=== PATIENT | male | born 1970 | race Caucasian/White ===

== ENCOUNTER 2020-09-05 15:51 | Inpatient (IN) | payer MEDICARE, MEDICAID, SELFPAY ==
[2020-09-05] VITALS (10 sets, daily range): BP systolic 106–135; BP diastolic 68–89; PULSE 99–120; RESP 16–25; TEMP 36.8–37.6; O2SAT 94–100; BMI 28.5
--- NOTE | 2020-09-05 16:09 | ED_ITS ---
Documented by User: QUINN Lunsford 09/07/20 18:10 HPI - Abdominal Pain General: Chief Complaint: Abdominal Pain Stated Complaint: ABDOMINAL PAIN Time Seen by Provider: 09/05/20 15:53 Source: patient Mode of arrival: EMS Limitations: no limitations History of Present Illness: HPI narrative: Patient is a nice 50-year-old male who presents to ED today with a complaint of right-sided abdominal pain that began noticing yesterday. He states since onset pain has progressively worsened. He is not having any nausea, vomiting, diarrhea, constipation. He admittedly has not ate or drank much since the pain started. He does not complain of urinary symptoms. Patient has not been running fevers. He has no previous abdominal surgeries. He does not complain of back pain or flank pain. MD elicited complaint: abdominal pain Pertinent past history: none Onset (ago): day(s) (yesterday) Pain Consistency: constant Severity: moderate Quality: sharp Radiation: none Migration to: no migration Exacerbating factors: nothing Relieving factors: nothing Associated Symptoms: Reports no associated symptoms; Denies change in stool character, chills, diarrhea, dysuria, fever(s), nausea and vomiting Review of Systems Const: Denies: fever(s) or chills Card: Denies: chest pain Resp: Denies: dyspnea GI: Reports: abdominal pain; Denies: nausea, vomiting, diarrhea or change in stool character : Denies: flank pain, difficulty urinating, dysuria, urinary frequency, u rinary urgency or urinary hesitancy Musc: Denies: neck pain, back pain, extremity pain, extremity swelling, joint pain or joint swelling Skin/Breast: Denies: rash Neuro: Denies: headache(s), numbness in extremities, weakness in extremities or sensory changes [facility] ED PFSH: Medical History (Updated 09/22/20 @ 00:27 by Alex Saravia MD, [facility] Cholelithiasis Chronic back pain Hypertension Surgical History (Updated 09/06/20 @ 08:04 by Stuart Cortés MD) Previous back surgery Lumbar laminectomy x 1 Umbilical hernia Repaired at the time of appendectomy Social History (Updated 09/05/20 @ 17:50 by Stuart Cortés MD) Smoking and tobacco status: current every day smoker cigarettes Packs smoked per day: 1 Years cigarettes smoked: 35 Alcohol intake: current Alcohol type: beer Alcohol use comment: Occasionally Physical Exam Const: COMMON NORMALS: no acute distress, average body habitus, patient oriented x3, no limitations, healthy appearing, alert and well nourished GENERAL APPEARANCE: cooperative ORIENTATION/CONSCIOUSNESS: Yes awake, Yes oriented to person, Yes oriented to place and Yes oriented to time Resp: COMMON NORMALS: normal respiratory effort and clear to auscultation bilaterally AUSCULTATION: clear to auscultation bilaterally Cardio: COMMON NORMALS: regular rate and regular rhythm RATE: regular rate RHYTHM: regular rhythm GI: COMMON NORMALS: Normal to inspection, nondistended, normoactive bowel sounds present, Soft to palpation, No hepatosplenomegaly present and no masses PALPATION: Yes Soft to palpation, Yes Tenderness to palpation present (GI) Details: RLQ and Yes No hepatosplenomegaly present : COMMON NORMALS: Yes no CVA tenderness BLADDER/KIDNEY EXAM: Yes no CVA tenderness Back/Pelvis: COMMON NORMALS: no CVA tenderness Extremity: COMMON NORMALS: normal to inspection GENERAL: Yes normal exam except as noted Neuro: COMMON NORMALS: patient oriented x3 SENSORIUM/ORIENTATION: Yes alert, Yes oriented to person, Yes oriented to place and Yes oriented to time Skin: COMMON NORMALS: no rashes or lesions noted GENERAL SKIN EXAM: no rashes or lesions noted Course Consultations: Consultation #1: Dr. Cortés-he will come evaluate patient in ED and likely take to OR Vital Signs: Vital signs: Vital Signs Temperature 97.5 F L 09/08/20 07:37 Pulse Rate 87 09/08/20 11:03 Respiratory Rate 18 09/08/20 07:54 Blood Pressure 106/66 09/08/20 07:37 Pulse Oximetry 95 09/08/20 07:54 MDM - Abdominal Pain MDM Narrative: Medical decision making narrative: Patient here with acute appendicitis. Possible perforation. He has been NPO since around noon. He was started on IV abx. I have consulted with the surgeon who is on his way to evaluate patient and likely take to OR. Dr. Saravia aware of patient as my shift is ending. Lab Data: Labs: Lab Results 09/05/20 09/05/20 09/05/20 Range/Units 16:00 16:00 17:00 WBC 19.6 H (4.0-10.0) 10^3/ uL RBC 5.35 H (4.1-5.3) 10^6/u L Hgb 16.2 (11.7-16.6) g/dL Hct 47.8 (42.0-52.0) % MCV 89.3 (80-94) fL MCH 30.3 (28.0-34.0) pg MCHC 33.9 (30.0-36.0) g/dL RDW 12.7 (12.1-15.1) % Plt Count 297 (130-400) 10^3/c mm MPV 11.1 H (7.4-10.4) fL Neut % (Auto) 91.4 % Lymph % (Auto) 2.9 % [place] % (Auto) 4.9 % Eos % (Auto) 0.1 % Baso % (Auto) 0.2 % Neut # (Auto) 17.88 H (1.8-7.7) 10^3/u L Lymph # (Auto) 0.6 L (0.8-4.8) 10^3/u L [place] # (Auto) 1.0 H (0.2-0.9) 10^3/u L Eos # (Auto) 0.0 (0.0-0.8) 10^3/u L Baso # (Auto) 0.0 (0.0-0.1) 10^3/u L Nucleated RBC % (a uto) 0 % Nucleated RBCs # 0.0 /100WBC Sodium 133 L (136-145) mmol/L Potassium 4.1 (3.5-5.1) mmol/L Chloride 96 L (98-107) mmol/L Carbon Dioxide 27 (22-29) mmol/L Anion Gap 14.1 (5-19) BUN 15 (6-20) mg/dL Creatinine 0.9 (0.7-1.2) mg/dL GFR Calculation 89.3 L (90-130) mL/min Glucose 134 H (65-115) mg/dL Calculated Osmolal ity 279 L (285-295) mOsm/k g Lactic Acid 1.7 (0.5-2.2) mmol/L Calcium 9.3 (8.5-10.5) mg/dL Total Bilirubin 0.7 (0.15-1.2) mg/dL AST 11 (0-40) U/L ALT 11 (0-41) U/L Alkaline Phosphata se 82 (40-130) IU/L Total Protein 7.2 (6.6-8.7) g/dL Albumin 4.4 (3.5-5.2) g/dL Globulin 2.8 (1.3-4.6) g/dL Lipase 15 (13-60) U/L Urine Color (Yellow) Urine Appearance (CLEAR) Urine pH (5-7) Ur Specific Gravit y (1.005-1.030) Urine Protein (Negative) Urine Glucose (UA) (Normal) Urine Ketones (Negative) Urine Blood (Negative) Urine Nitrate (Negative) Urine Bilirubin (Negative) Urine Urobilinogen (Negative) mg/dL Ur Leukocyte Noelle ase (Negative) 09/05/20 09/06/20 09/06/20 Range/Units 17:00 05:42 05:42 WBC 21.7 H (4.0-10.0) 10^3/ uL RBC 4.61 (4.1-5.3) 10^6/u L Hgb 13.9 (11.7-16.6) g/dL Hct 41.5 L (42.0-52.0) % MCV 90.0 (80-94) fL MCH 30.2 (28.0-34.0) pg MCHC 33.5 (30.0-36.0) g/dL RDW 12.7 (12.1-15.1) % Plt Count 247 (130-400) 10^3/c mm MPV 11.2 H (7.4-10.4) fL Neut % (Auto) 90.6 % Lymph % (Auto) 4.2 % [place] % (Auto) 4.3 % Eos % (Auto) 0.0 % Baso % (Auto) 0.1 % Neut # (Auto) 19.64 H (1.8-7.7) 10^3/u L Lymph # (Auto) 0.9 (0.8-4.8) 10^3/u L [place] # (Auto) 0.9 (0.2-0.9) 10^3/u L Eos # (Auto) 0.0 (0.0-0.8) 10^3/u L Baso # (Auto) 0.0 (0.0-0.1) 10^3/u L Nucleated RBC % (a uto) 0 % Nucleated RBCs # 0.0 /100WBC Sodium 138 (136-145) mmol/L Potassium 3.9 (3.5-5.1) mmol/L Chloride 104 (98-107) mmol/L Carbon Dioxide 24 (22-29) mmol/L Anion Gap 13.9 (5-19) BUN 11 (6-20) mg/dL Creatinine 1.0 (0.7-1.2) mg/dL GFR Calculation 79.1 L (90-130) mL/min Glucose 139 H (65-115) mg/dL Calculated Osmolal ity 288 (285-295) mOsm/k g Lactic Acid (0.5-2.2) mmol/L Calcium 8.4 L (8.5-10.5) mg/dL Total Bilirubin (0.15-1.2) mg/dL AST (0-40) U/L ALT (0-41) U/L Alkaline Phosphata se (40-130) IU/L Total Protein (6.6-8.7) g/dL Albumin (3.5-5.2) g/dL Globulin (1.3-4.6) g/dL Lipase (13-60) U/L Urine Color Dark yellow (Yellow) Urine Appearance Clear (CLEAR) Urine pH 5 (5-7) Ur Specific Gravit y 1.010 (1.005-1.030) Urine Protein Neg (Negative) Urine Glucose (UA) Norm (Normal) Urine Ketones Negative (Negative) Urine Blood Neg (Negative) Urine Nitrate Negative (Negative) Urine Bilirubin 1+ H (Negative) Urine Urobilinogen 1 H (Negative) mg/dL Ur Leukocyte Noelle ase Negative (Negative) Imaging Data ^: CT Abd/Pel: Radiologist's impression: [address] [place] [address] CT Scan Report Signed with Addenda Patient: Chucky Winslow Unit #: [id number] : 1970 Age/Sex: 50 / M ADM Date: 09/05/20 Loc: ER Room/Bed: Attending Dr: Ordering Provider/Ordering MD: Stacey Nix Date of Service: 09/05/20 Procedure(s): CT abdomen pelvis w con* [id number] Accession Number(s): [id number] Report Number: [id number]/CT abdomen pelvis w con* [id number] Addendum: THIS REPORT CONTAINS FINDINGS THAT MAY BE CRITICAL TO PATIENT CARE. The findings were verbally communicated via telephone conference with Stacey Nix at 5:10 PM [employer]IDGE CONSTRUCTION INSPECTOR on 09/05/2020. The findings were acknowledged and understood. Radiation Dose CTDIVOL = (mGy): DLP = 1912.81 (mGy-cm) Addendum Dictated By: Marshall Milan Addendum Signed By: Marshall Milan Signed Date/Time: 09/05/20 171 2 Addendum Cosigned By: PROCEDURE INFORMATION: Exam: CT Abdomen And Pelvis With Contrast Exam date and time: 09/05/2020 4:33 PM Age: 50 years old Clinical indication: Abdominal pain; Additional info: R sided abdominal pain TECHNIQUE: Imaging protocol: Computed tomography of the abdomen and pelvis with contrast. Radiation optimization: All CT scans at this facility use at least one of these dose optimization techniques: automated exposure control; mA and/or kV adjustment per patient size (includes targeted exams where dose is matched to clinical indication); or iterative reconstruction. Contrast material: OMNI 300; Contrast volume: 95 ml; Contrast route: INTRAVENOUS (IV); COMPARISON: No relevant prior studies available. RADIATION DOSE METRICS: Total DLP (mGy-cm): 1912.81 FINDINGS: Liver: There is no focal abnormality within the liver. Gallbladder and bile ducts: Multiple calcified gallstones are present. Pancreas: The pancreas is normal. Spleen: The spleen is normal. Adrenal glands: The adrenal glands are normal. Kidneys and ureters: The kidneys are normal. There is no evidence of hydronephrosis. There is no evidence of renal or ureteral calcifications. Stomach and bowel: There is some mildly dilated fluid-filled loops of small bowel suggesting reactive ileus. Appendix: Appendix is thickened and distended to 11 mm with enhancing wall with inflammation in the adjacent fat. These findings are worrisome for acute appendicitis. Intraperitoneal space: There is a small amount of fluid in the right lower quadrant and right pericolic gutter. There is a single bubble of gas in the anterior aspect of this fluid which raises concern for the possibility of appendiceal perforation. There may be additional bubble of extraluminal gas adjacent to the base of the appendix. Vasculature: The aorta demonstrates mild atherosclerotic calcification. There is no evidence of an abdominal aortic aneurysm. Lymph nodes: Unremarkable. No enlarged lymph nodes. Urinary bladder: There is thickening of the wall of the urinary bladder. Please correlate for signs of symptoms of urinary tract infection. Reproductive: The prostate gland demonstrates nonspecific parenchymal calcifications. Bones/joints: The lumbar spine demonstrates mild degenerative changes at multiple levels. Soft tissues: Unremarkable. CT/CT abdomen pelvis w con* [id number] IMPRESSION: 1. Acute appendicitis. 2. Appendiceal perforation is suspected. 3. Cholelithiasis 4. Thickening of the urinary bladder wall. Please correlate for any signs of urinary tract infection. 5. Mild ileus. Radiation Dose CTDIVOL = (mGy): DLP = 1912.81 (mGy-cm) Dictated By: Marshall Milan Signed By: Marshall Milan Signed Date/Time: 09/05/20 171 DD/ 07 Discharge Plan Discharge Patient Disposition: Admitted As Inpatient Admit Provider: Stuart Cortés Clinical Impression: Acute appendicitis Condition: Stable Discharge Diet: Advance as tolerated Discharge Activity: Limit activity as instructed Coding Level of Care Code ED Automotive Power Electronics Engineer for Chg Fwd Exam Detailed Documented by User: Alex Saravia MD, [facility] 09/22/20 00:27 HPI - Abdominal Pain General: Chief Complaint: Abdominal Pain Stated Complaint: ABDOMINAL PAIN Time Seen by Provider: 09/05/20 15:53 PFSH ED PFSH: Medical History (Updated 09/22/20 @ 00:27 by Alex Saravia MD, [facility] Cholelithiasis Chronic back pain Hypertension Surgical History (Updated 09/06/20 @ 08:04 by Stuart Cortés MD) Previous back surgery Lumbar laminectomy x 1 Umbilical hernia Repaired at the time of appendectomy Social History (Updated 09/05/20 @ 17:50 by Stuart Cortés MD) Smoking and tobacco status: current every day smoker cigarettes Packs smoked per day: 1 Years cigarettes smoked: 35 Alcohol intake: current Alcohol type: beer Alcohol use comment: Occasionally Course Vital Signs: Vital signs: Vital Signs Temperature 97.5 F L 09/08/20 07:37 Pulse Rate 87 09/08/20 11:03 Respiratory Rate 18 09/08/20 07:54 Blood Pressure 106/66 09/08/20 07:37 Pulse Oximetry 95 09/08/20 07:54 MDM - Abdominal Pain MDM Narrative: Medical decision making narrative: Kindly review the nurse practitioner's note for complete history and physical examination. I agree with her findings. Essentially this is a gentleman with acute appendicitis with likely perforation and will be taken emergently to the or for appendectomy. Lab Data: Labs: Lab Results 09/05/20 09/05/20 09/05/20 Range/Units 16:00 16:00 17:00 WBC 19.6 H (4.0-10.0) 10^3/ uL RBC 5.35 H (4.1-5.3) 10^6/u L Hgb 16.2 (11.7-16.6) g/dL Hct 47.8 (42.0-52.0) % MCV 89.3 (80-94) fL MCH 30.3 (28.0-34.0) pg MCHC 33.9 (30.0-36.0) g/dL RDW 12.7 (12.1-15.1) % Plt Count 297 (130-400) 10^3/c mm MPV 11.1 H (7.4-10.4) fL Neut % (Auto) 91.4 % Lymph % (Auto) 2.9 % [place] % (Auto) 4.9 % Eos % (Auto) 0.1 % Baso % (Auto) 0.2 % Neut # (Auto) 17.88 H (1.8-7.7) 10^3/u L Lymph # (Auto) 0.6 L (0.8-4.8) 10^3/u L [place] # (Auto) 1.0 H (0.2-0.9) 10^3/u L Eos # (Auto) 0.0 (0.0-0.8) 10^3/u L Baso # (Auto) 0.0 (0.0-0.1) 10^3/u L Nucleated RBC % (a uto) 0 % Nucleated RBCs # 0.0 /100WBC Sodium 133 L (136-145) mmol/L Potassium 4.1 (3.5-5.1) mmol/L Chloride 96 L (98-107) mmol/L Carbon Dioxide 27 (22-29) mmol/L Anion Gap 14.1 (5-19) BUN 15 (6-20) mg/dL Creatinine 0.9 (0.7-1.2) mg/dL GFR Calculation 89.3 L (90-130) mL/min Glucose 134 H (65-115) mg/dL Calculated Osmolal ity 279 L (285-295) mOsm/k g Lactic Acid 1.7 (0.5-2.2) mmol/L Calcium 9.3 (8.5-10.5) mg/dL Total Bilirubin 0.7 (0.15-1.2) mg/dL AST 11 (0-40) U/L ALT 11 (0-41) U/L Alkaline Phosphata se 82 (40-130) IU/L Total Protein 7.2 (6.6-8.7) g/dL Albumin 4.4 (3.5-5.2) g/dL Globulin 2.8 (1.3-4.6) g/dL Lipase 15 (13-60) U/L Urine Color (Yellow) Urine Appearance (CLEAR) Urine pH (5-7) Ur Specific Gravit y (1.005-1.030) Urine Protein (Negative) Urine Glucose (UA) (Normal) Urine Ketones (Negative) Urine Blood (Negative) Urine Nitrate (Negative) Urine Bilirubin (Negative) Urine Urobilinogen (Negative) mg/dL Ur Leukocyte Noelle ase (Negative) 09/05/20 09/06/20 09/06/20 Range/Units 17:00 05:42 05:42 WBC 21.7 H (4.0-10.0) 10^3/ uL RBC 4.61 (4.1-5.3) 10^6/u L Hgb 13.9 (11.7-16.6) g/dL Hct 41.5 L (42.0-52.0) % MCV 90.0 (80-94) fL MCH 30.2 (28.0-34.0) pg MCHC 33.5 (30.0-36.0) g/dL RDW 12.7 (12.1-15.1) % Plt Count 247 (130-400) 10^3/c mm MPV 11.2 H (7.4-10.4) fL Neut % (Auto) 90.6 % Lymph % (Auto) 4.2 % [place] % (Auto) 4.3 % Eos % (Auto) 0.0 % Baso % (Auto) 0.1 % Neut # (Auto) 19.64 H (1.8-7.7) 10^3/u L Lymph # (Auto) 0.9 (0.8-4.8) 10^3/u L [place] # (Auto) 0.9 (0.2-0.9) 10^3/u L Eos # (Auto) 0.0 (0.0-0.8) 10^3/u L Baso # (Auto) 0.0 (0.0-0.1) 10^3/u L Nucleated RBC % (a uto) 0 % Nucleated RBCs # 0.0 /100WBC Sodium 138 (136-145) mmol/L Potassium 3.9 (3.5-5.1) mmol/L Chloride 104 (98-107) mmol/L Carbon Dioxide 24 (22-29) mmol/L Anion Gap 13.9 (5-19) BUN 11 (6-20) mg/dL Creatinine 1.0 (0.7-1.2) mg/dL GFR Calculation 79.1 L (90-130) mL/min Glucose 139 H (65-115) mg/dL Calculated Osmolal ity 288 (285-295) mOsm/k g Lactic Acid (0.5-2.2) mmol/L Calcium 8.4 L (8.5-10.5) mg/dL Total Bilirubin (0.15-1.2) mg/dL AST (0-40) U/L ALT (0-41) U/L Alkaline Phosphata se (40-130) IU/L Total Protein (6.6-8.7) g/dL Albumin (3.5-5.2) g/dL Globulin (1.3-4.6) g/dL Lipase (13-60) U/L Urine Color Dark yellow (Yellow) Urine Appearance Clear (CLEAR) Urine pH 5 (5-7) Ur Specific Gravit y 1.010 (1.005-1.030) Urine Protein Neg (Negative) Urine Glucose (UA) Norm (Normal) Urine Ketones Negative (Negative) Urine Blood Neg (Negative) Urine Nitrate Negative (Negative) Urine Bilirubin 1+ H (Negative) Urine Urobilinogen 1 H (Negative) mg/dL Ur Leukocyte Noelle ase Negative (Negative) Discharge Plan Discharge Patient Disposition: Admitted As Inpatient Admit Provider: Stuart Cortés Clinical Impression: Acute appendicitis Condition: Stable Discharge Diet: Advance as tolerated Discharge Activity: Limit activity as instructed Coding Level of Care Code ED Automotive Power Electronics Engineer for Macy Fwd Exam Detailed
[2020-09-05 16:13] LABS: Basophils % 0.2 %; Eosinophils % 0.1 %; Hematocrit 47.8 % (42.0-52.0); Hemoglobin 16.2 g/dL (11.7-16.6); Lymphocytes # 0.6 10^3/uL (0.8-4.8); Lymphocytes % 2.9 %; Mean Corpuscular HGB Conc 33.9 g/dL (30.0-36.0); Mean Corpuscular Hemoglobin 30.3 pg (28.0-34.0); Mean Corpuscular Volume 89.3 fL (80-94); Mean Platelet Volume 11.1 fL (7.4-10.4); Monocytes % 4.9 %; Neutrophils # 17.88 10^3/uL (1.8-7.7); Neutrophils % 91.4 %; Nucleated Red Blood Cells % 0 %; Platelet Count 297 10^3/cmm (130-400); Red Blood Count 5.35 10^6/uL (4.1-5.3); Red Cell Distribution Width 12.7 % (12.1-15.1); White Blood Count 19.6 10^3/uL (4.0-10.0)
[2020-09-05 16:38] LABS: Alanine Aminotransferase 11 U/L (0-41); Albumin Level 4.4 g/dL (3.5-5.2); Alkaline Phosphatase 82 IU/L (40-130); Anion Gap 14.1 (5-19); Aspartate Amino Transferase 11 U/L (0-40); Blood Urea Nitrogen 15 mg/dL (6-20); Calcium 9.3 mg/dL (8.5-10.5); Carbon Dioxide 27 mmol/L (22-29); Chloride 96 mmol/L (98-107); Globulin 2.8 g/dL (1.3-4.6); Glomerular Filtration Rate 89.3 mL/min (90-130); Glucose 134 mg/dL (65-115); Lipase 15 U/L (13-60); Osmolality Calculated 279 mOsm/kg (285-295); Potassium 4.1 mmol/L (3.5-5.1); Sodium 133 mmol/L (136-145); Total Bilirubin 0.7 mg/dL (0.15-1.2); Total Protein 7.2 g/dL (6.6-8.7)
[2020-09-05] MEDS: iohexol 300 mg/mL 100 mL Btl IV (16:49)
[2020-09-05] MEDS: piperacillin-tazobactam 3.375 GM in sodium chloride 0.9% (plus) 50 ML IV (17:21)
[2020-09-05 17:39] LABS: Lactic Sepsis W/Reflex 1.7 mmol/L (0.5-2.2)
[2020-09-05] MEDS: morphine 4 mg/mL SDV 1 mL IVP (17:41)
[2020-09-05] MEDS: ondansetron 2 mg/ML SDV 2 mL 4 MG IVP (17:41)
--- NOTE | 2020-09-05 17:41 | ANES.PREANE2 ---
Pre-Anesthetic Assessment Pre-Anesthetic Assessment: Height/Weight: Height 1.83 m Weight 95.254 kg Temp Pulse Resp BP Pulse Ox 98.4 F 106 H 25 H 113/77 97 09/05/20 15:52 09/05/20 17:03 09/05/20 17:03 09/05/20 17:03 09/05/20 17:03 Preop Diagnosis: appendicitis Proposed Procedure: Laparascopic Appendectomy Familial anesthetic complications: NOne Was Beta Marlene taken within 24 hours: N/A Last intake: NPO > 8 hrs Social: Social History: Tobacco and No alcohol Exam: Pre-Anes Outpt Exam: alert, oriented x 3, clear to auscultation bilaterally and regular rate & rhythm Airway: Cervical ROM: WNL MP: 3 Dentition: Chipped CV/HEM: CV/HEM: HTN Musc/skel: Musc/skel: Lower Back Pain Anesthetic Plan: ASA status: 2E Anesthesia: General Risk of > 500 ml blood loss (7ml/kg in children): No Data Anesthesia CBC & Chem 7: 09/05/20 16:00 09/05/20 16:00 Other Labs: Laboratory Results - last 48 hr 09/05/20 09/05/20 09/05/20 16:00 16:00 17:00 WBC 19.6 H RBC 5.35 H Hgb 16.2 Hct 47.8 MCV 89.3 MCH 30.3 MCHC 33.9 RDW 12.7 Plt Count 297 MPV 11.1 H Neut % (Auto) 91.4 Lymph % (Auto) 2.9 [place] % (Auto) 4.9 Eos % (Auto) 0.1 Baso % (Auto) 0.2 Neut # (Auto) 17.88 H Lymph # (Auto) 0.6 L [place] # (Auto) 1.0 H Eos # (Auto) 0.0 Baso # (Auto) 0.0 Nucleated RBC % (auto) 0 Nucleated RBCs # 0.0 Sodium 133 L Potassium 4.1 Chloride 96 L Carbon Dioxide 27 Anion Gap 14.1 BUN 15 Creatinine 0.9 GFR Calculation 89.3 L Glucose 134 H Calculated Osmolality 279 L Lactic Acid 1.7 Calcium 9.3 Total Bilirubin 0.7 AST 11 ALT 11 Alkaline Phosphatase 82 Total Protein 7.2 Albumin 4.4 Globulin 2.8 Lipase 15 Cardiac Studies: No Data to Display
[2020-09-05 17:45] LABS: Add Urine Microscopic? NO
--- NOTE | 2020-09-05 17:45 | PM.HP ---
Providers/Chief Complaint Admitting Physician: General Surgery Stuart Cortés MD Primary Care Provider: Dr. Metzger Chief Complaint: ABDOMINAL PAIN History of Present Illness Chucky Winslow is a 50 year old male who developed abdominal pain late yesterday morning. This started in the right lower quadrant of his abdomen. Initially it was not that bad, but it worsened throughout the day. He lost his appetite. He thought maybe he was constipated even though he had a normal bowel movement earlier in the day. He took some milk of magnesia but it did not result in any further bowel movements. He denies fevers, chills, nausea and vomiting. The pain, however continued to intensify and he came to the emergency room today where a CAT scan showed changes consistent with acute appendicitis. The radiologist is concerned that there may already be an early perforation. Review of Systems General: Reports: 10 or more systems reviewed and unremarkable except in HPI and below Const: Reports: chills ( I felt a little cold after I got done with a CAT scan ); Denies: fever(s) Resp: Denies: dyspnea or productive cough GI: Reports: abdominal pain; Denies: nausea, vomiting or change in bowel habits Musc: Reports: back pain (Chronic) Medications/Allergies Home Medications Medication Instructions Recorded Confirmed Last Taken Type aspirin [Aspir-81] 81 mg PO DAILY@0800 09/05/20 09/05/20 09/04/20 History cyclobenzaprine 10 mg PO TID PRN 09/05/20 09/05/20 09/04/20 History lisinopril 20 mg PO DAILY@0800 09/05/20 09/05/20 09/04/20 History pregabalin 300 mg PO BID@08,199909/05/20 09/05/20 09/04/20 History saw palmetto 1 tab PO DAILY@0800 09/05/20 09/05/20 09/04/20 History Allergies Allergy/AdvReac Type Severity Reaction Status Date / Time codeine Allergy ADR-Nausea Verified 09/05/20 17:50 PFSH Acute PFSH: Medical History (Updated 09/05/20 @ 17:47 by Stuart Cortés MD) Cholelithiasis Chronic back pain Hypertension Surgical History (Updated 09/05/20 @ 17:46 by Stuart Cortés MD) Previous back surgery Lumbar laminectomy x 1 Social History (Updated 09/05/20 @ 17:50 by Stuart Cortés MD) Smoking and tobacco status: current every day smoker cigarettes Packs smoked per day: 1 Years cigarettes smoked: 35 Alcohol intake: current Alcohol type: beer Alcohol use comment: Occasionally Vitals/I&O/Wt Last Vital Signs Temp 98.4 F 09/05/20 15:52 Pulse 106 H 09/05/20 17:03 Resp 25 H 09/05/20 17:03 BP 113/77 09/05/20 17:03 Pulse Ox 97 09/05/20 17:03 Weight last 48 hrs Weight 210 lb Physical Exam Narrative: EXAM NARRATIVE: The patient was encountered in his room in the emergency department. He is laying on his right side. He does not appear to be in any acute distress but seems to be uncomfortable when he moves around. The pupils are equal. No carotid bruits are heard. The lungs are clear. The heart is regular. The abdomen reveals hypoactive bowel sounds and is mildly obese. There is a fat-containing umbilical hernia which is nontender. The patient's maximum point of tenderness is over McBurney's point in the right lower quadrant or perhaps slightly above that. Rovsing's sign is positive. No obvious masses are palpated Data : 09/05/20 16:00 09/05/20 16:00 CT Abd/Pel: Radiologist's impression: CT abdomen/pelvis 09/05/2020 IMPRESSION: 1. Acute appendicitis. 2. Appendiceal perforation is suspected. 3. Cholelithiasis 4. Thickening of the urinary bladder wall. Please correlate for any signs of urinary tract infection. 5. Mild ileus. A&P Assessment and plan (1) Acute appendicitis: CAT scan was reviewed. The patient's appendix does appear to be significantly inflamed and there appears to be a small amount of air probably outside of the appendiceal lumen laterally up against the abdominal wall. I discussed appendicitis and appendectomy's with the patient in some detail. Both laparoscopy and open techniques were discussed. Risks of surgery including bleeding, infection, internal organ injury, etc. were all gone over. I made him aware that if there is clinical evidence of obvious perforation, he may need to be in the hospital for a while for further treatment and he voiced understanding; otherwise, we may be able to discharge him as early as tomorrow morning. He seems to understand and would like to proceed with an appendectomy tonight. Status: Acute Qualifiers: Acute appendicitis type: with localized peritonitis Appendicitis abscess presence: without abscess Appendicitis gangrene presence: without gangrene Appendicitis perforation presence: with perforation Qualified Code(s): K35.32 - Acute appendicitis with perforation and localized peritonitis, without abscess (2) Umbilical hernia: I made the patient aware that this will be repaired incidentally at the time of surgery. Status: Acute Attestations Medical Necessity Statement*: Based on my medical assessment, presenting symptoms and consideration of the scope of surgical therapy, I expect this patient will require treatment in the hospital for a period of time spanning less than 2 midnights, and is therefore being placed in observation status for now. If the patient's appendix is found to be clinically ruptured, he may require a change to inpatient status for ongoing treatment. Coding Level of Care Code Acute Station Mechanic Helper for [facility] Fwd Diagnoses Acute appendicitis K35.32 Acute appendicitis type: with localized peritonitis Appendicitis abscess presence: without abscess Appendicitis gangrene presence: without gangrene Appendicitis perforation presence: with perforation Umbilical hernia K42.9
[2020-09-05] MEDS: lactated ringers 1,000 ML 150 ML IV (17:49)
[2020-09-05 18:02] LABS: Bilirubin Urine 1+ (Negative); Blood Urine Neg (Negative); Glucose Urine UA Norm (Normal); Ketones Urine Negative (Negative); Leukocyte Esterase Urine Negative (Negative); Nitrate Urine Negative (Negative); Protein Urine Neg (Negative); Urine Appearance Clear (CLEAR); Urine Color Dark Yellow (Yellow); Urobilinogen Urine 1 mg/dL (Negative); pH Urine 5 (5-7)
--- NOTE | 2020-09-05 19:15 | P.OP_ITS ---
Operative Report Date of procedure: September 05, 2020 Pre-op Diagnosis: Acute appendicitis with probable early rupture. Post-op Diagnosis: Perforated appendicitis. Procedure Done: Laparoscopic appendectomy. Specimens removed/disposition: 1. Peritoneal fluid for Gram stain and cultures. 2. Appendix. Surgeon: Stuart Cortés Anesthesia: General Estimated blood loss (mL): 5 Complications: None. Condition: stable Disposition: PACU Procedure: The patient was brought to the Operating Room and was placed in a supine position on the operating room table. General endotracheal anesthesia was induced. The abdomen was prepped and draped in a sterile fashion. A small vertical incision was carried out in the base of the umbilicus where the patient was known to have an umbilical hernia. Blunt dissection was carried out down to the fascia, and the herniated fat was eventually excised from the defect which measured less than a centimeter in diameter. The defect was elongated somewhat inferiorly and superiorly. A stay suture of 0 Vicryl was placed on either side of the midline. The Angel port was placed directly into the peritoneal cavity through the enlarged hernia defect and was held in place with the inflatable balloon. The peritoneal cavity was insufflated with carbon dioxide. The laparoscope was used to inspect the peritoneal cavity. The patient had some yellow purulent fluid throughout the right lower quadrant and pelvis. The colon was somewhat dilated, consistent with an ileus. Two 5-millimeter ports were placed in the left lower quadrant under direct vision. The patient was tilted in a Trendelenburg position and slightly to the left side. Some of the purulent fluid in the pelvis was suctioned out into a sterile container and was sent for Gram stain and culture. A laparoscopic Rylan was used to elevate the cecum and the appendix was identified. The appendix was very indurated and erythematous. The mesoappendix was edematous, as well. The site of perforation was not immediately evident. The appendix was freed using blunt dissection and was then elevated. The mesoappendix was divided using cautery to maintain hemostasis at the base of the appendix. The base of the appendix appeared relatively healthy and was divided using an endoscopic stapler. The appendix was removed from the peritoneal cavity after being placed in a laparoscopic bag. The appendix was eventually inspected on the back table and a site of perforation at the base underneath some fat approximately 8 mm from the staple line was identified. The peritoneal cavity was then irrigated with multiple liters of saline with attention being concentrated in the pelvis and right lower quadrant. The staple line on the cecum was identified and appeared to be in good condition. The Angel port was removed from the umbilical site and the stay sutures of Vicryl were tied to each other at the umbilicus. An additional simple suture of 0 Vicryl was placed, closing the fascial defect so that it was airtight. A final round of irrigation was carried out in the right lower quadrant and the pelvis. No ongoing problems were seen. The remaining ports were removed from the abdominal wall as the pneumoperitoneum was evacuated. All skin incisions were closed using inverted interrupted sutures of 4-0 Vicryl. Benzoin and Steri-Strips were placed over the incisions and Band- Aids followed. The patient was taken to the Recovery Room in stable condition postoperatively.
[2020-09-05] MEDS: heparin 5,000 unit/mL INJ 1 mL 5000 UNIT SUBCUT (20:19)
[2020-09-05] MEDS: pregabalin 150 mg Capsule 300 MG PO (20:19)
[2020-09-05] MEDS: famotidine 20 mg/2 mL INJ IVP (20:19)
[2020-09-05] MEDS: D5-NS 0.45% + KCL 20 mEq 20 MEQ/1,000 ML BAG 100 MEQ IV (20:19)
[2020-09-05] MEDS: levalbuterol 0.63 mg/3 mL Neb INHALATION (21:40)
[2020-09-06] VITALS (11 sets, daily range): BP systolic 102–111; BP diastolic 62–72; PULSE 86–100; RESP 18–20; TEMP 37.1–37.5; O2SAT 92–96
[2020-09-06] MEDS: piperacillin-tazobactam 3.375 GM in sodium chloride 0.9% (plus) 50 ML IV ×3 (01:45→17:31)
[2020-09-06 06:40] LABS: Basophils % 0.1 %; Hematocrit 41.5 % (42.0-52.0); Hemoglobin 13.9 g/dL (11.7-16.6); Lymphocytes # 0.9 10^3/uL (0.8-4.8); Lymphocytes % 4.2 %; Mean Corpuscular HGB Conc 33.5 g/dL (30.0-36.0); Mean Corpuscular Hemoglobin 30.2 pg (28.0-34.0); Mean Platelet Volume 11.2 fL (7.4-10.4); Monocytes # 0.9 10^3/uL (0.2-0.9); Monocytes % 4.3 %; Neutrophils # 19.64 10^3/uL (1.8-7.7); Neutrophils % 90.6 %; Nucleated Red Blood Cells % 0 %; Platelet Count 247 10^3/cmm (130-400); Red Blood Count 4.61 10^6/uL (4.1-5.3); Red Cell Distribution Width 12.7 % (12.1-15.1); White Blood Count 21.7 10^3/uL (4.0-10.0)
[2020-09-06] MEDS: D5-NS 0.45% + KCL 20 mEq 20 MEQ/1,000 ML BAG 100 MEQ IV ×2 (06:41→21:42)
[2020-09-06 07:03] LABS: Anion Gap 13.9 (5-19); Blood Urea Nitrogen 11 mg/dL (6-20); Calcium 8.4 mg/dL (8.5-10.5); Carbon Dioxide 24 mmol/L (22-29); Chloride 104 mmol/L (98-107); Glomerular Filtration Rate 79.1 mL/min (90-130); Glucose 139 mg/dL (65-115); Osmolality Calculated 288 mOsm/kg (285-295); Potassium 3.9 mmol/L (3.5-5.1); Sodium 138 mmol/L (136-145)
--- NOTE | 2020-09-06 08:04 | P.PN_ITS ---
Subjective Subjective: Interval history: The patient says he already feels much better following surgery last night. He is not passing any flatus. Vitals/I&O/Wt Last Vital Signs Temp 99.5 F 09/06/20 07:48 Pulse 93 09/06/20 07:48 Resp 20 H 09/06/20 07:48 BP 111/65 09/06/20 07:48 Pulse Ox 94 09/06/20 07:48 09/05/20 09/06/20 09/06/20 22:59 06:59 14:59 Intake Total 100 / 2250 2150 / 2250 Output Total 25 / 1025 1000 / 1025 Balance 75 / 1225 1150 / 1225 Weight last 48 hrs Weight 210 lb Physical Exam Narrative: EXAM NARRATIVE: The patient is having some very low-grade fevers. Vital signs are otherwise stable. Bowel sounds are infrequent. The surgical incisions look good. Data : 09/06/20 05:42 09/06/20 05:42 Micro: Microbiology 09/05/20 Unknown Gram Stain - Final Peritoneal Fluid A&P Assessment and plan (1) Perforated appendicitis: Status post laparoscopic appendectomy for perforated appendicitis on 09/05/2020. Operative findings have been discussed. The patient's white blood cell count remains elevated and he is running some low-grade fevers. Gram stain of the peritoneal fluid revealed some gram- positive cocci consistent with Streptococcus, and some gram-positive rods. Continue Zosyn. Increase activity as able. Status: Acute Attestations Medical Necessity Statement*: The patient's appendix was found to be perforated at the time of surgery. He will be converted to inpatient status for inpatient care requiring ongoing intravenous antibiotics, etc. 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
[2020-09-06] MEDS: HYDROcodone-acetaminophen 5-325 mg Tablet PO ×3 (08:33→21:38)
[2020-09-06] MEDS: aspirin 81 mg EC Tablet PO (08:33)
[2020-09-06] MEDS: pregabalin 150 mg Capsule 300 MG PO ×2 (08:33→21:38)
[2020-09-06] MEDS: heparin 5,000 unit/mL INJ 1 mL 5000 UNIT SUBCUT ×2 (08:35→21:39)
[2020-09-06] MEDS: lisinopril 20 mg Tablet PO (08:35)
[2020-09-06] MEDS: famotidine 20 mg/2 mL INJ IVP ×2 (08:35→21:39)
[2020-09-06] MEDS: nicotine 14 mg Patch 1 PATCH TRANSDERMA (08:36)
[2020-09-06] MEDS: levalbuterol 0.63 mg/3 mL Neb INHALATION ×3 (08:37→20:45)
--- NOTE | 2020-09-06 13:46 | PC.CHAP ---
Pastoral Care Encounter/Spiritual Assessment Type of Contact [] Declined production team manager visit [] Patient/Family/Request visit [] Outpatient visit [] Follow-up visit [] Physician referral [] Code/Alert [] Routine visit [] Staff referral [] Actively dying [xx] Patient sleeping [] Family support [] [] Out of room [] Palliative care [] [] Receiving care in room [] Pre-surgical visit [] Trauma [] Long length of stay [] ICU visit [xx] Other: Follow up needed Relational/Emotional Strength [] Patient feels connected with others/family/visitors/staff [] Distress [] Loneliness/isolation [] Abandonment Spirituality of Patient [] Person of Bisi [] Attends Ep[employer] of their Bisi [] Believes in Prayer [] Reads Bible or Restorationism materials [] There are Spiritual issues to be addressed Hog Feeder Interventions [] Prayer [] Active listening [] Non-anxious presence [] Spiritual/emotional support [] Crisis/trauma care [] Spiritual counseling [] Bereavement support [] Provided bereavement packet [] Provided Bible/devotional materials [] Provided toy/stuffed animal, coloring book to patient or family member [] Provided Communion [] Anointing/[place] [] Salvation [] Completed spiritual assessment [] Other: Impact on Illness or Injury [] Angry [] Fearful [] Anxious [] Often cries [] Exhaustion [] Unable to work [] Unable to attend confucianism [] Unable to walk/stand [] Unable to read [] Unable to drive [] Unable to eat/drink [] Unable to sleep [] Unable to be with family [] Patient intubated [] Other: Summary Time spent with patient
--- NOTE | 2020-09-06 17:10 | PC.RESP ---
Pt sleeping treatment not given.
[2020-09-07] VITALS (11 sets, daily range): BP systolic 102–113; BP diastolic 59–84; PULSE 78–101; RESP 16–19; TEMP 36.4–37.1; O2SAT 94–97
[2020-09-07] MEDS: piperacillin-tazobactam 3.375 GM in sodium chloride 0.9% (plus) 50 ML IV ×3 (01:39→17:08)
[2020-09-07] MEDS: HYDROcodone-acetaminophen 5-325 mg Tablet PO ×5 (05:04→21:43)
[2020-09-07 05:11] LABS: Basophils % 0.2 %; Eosinophils # 0.1 10^3/uL (0.0-0.8); Eosinophils % 0.5 %; Hematocrit 40.4 % (42.0-52.0); Hemoglobin 13.1 g/dL (11.7-16.6); Lymphocytes # 1.7 10^3/uL (0.8-4.8); Lymphocytes % 12.6 %; Mean Corpuscular HGB Conc 32.4 g/dL (30.0-36.0); Mean Corpuscular Hemoglobin 30.5 pg (28.0-34.0); Mean Platelet Volume 10.9 fL (7.4-10.4); Monocytes # 0.8 10^3/uL (0.2-0.9); Monocytes % 6.2 %; Neutrophils # 10.63 10^3/uL (1.8-7.7); Nucleated Red Blood Cells % 0 %; Platelet Count 234 10^3/cmm (130-400); Red Cell Distribution Width 13.1 % (12.1-15.1); White Blood Count 13.3 10^3/uL (4.0-10.0)
[2020-09-07 06:06] LABS: Anion Gap 11.7 (5-19); Blood Urea Nitrogen 8 mg/dL (6-20); Calcium 8.1 mg/dL (8.5-10.5); Carbon Dioxide 24 mmol/L (22-29); Chloride 104 mmol/L (98-107); Glomerular Filtration Rate 89.3 mL/min (90-130); Glucose 112 mg/dL (65-115); Osmolality Calculated 281 mOsm/kg (285-295); Potassium 3.7 mmol/L (3.5-5.1); Sodium 136 mmol/L (136-145)
[2020-09-07] MEDS: levalbuterol 0.63 mg/3 mL Neb INHALATION ×3 (08:10→19:35)
--- NOTE | 2020-09-07 08:11 | PC.RESP ---
Pt ordered while awake nebulized Xopenex, not given at 1200 midnight or 0400 unless pt requests.
--- NOTE | 2020-09-07 09:07 | P.PN_ITS ---
Subjective Subjective: Interval history: The patient continues to feel well, although he says he did have some abdominal pain last night and is not passing as much flatus now. Vitals/I&O/Wt Last Vital Signs Temp 98.2 F 09/07/20 08:00 Pulse 92 09/07/20 08:16 Resp 18 09/07/20 08:12 BP 111/84 09/07/20 08:00 Pulse Ox 95 09/07/20 08:12 09/06/20 09/07/20 09/07/20 22:59 06:59 14:59 Intake Total 1410 / 3110 1050 / 3110 Output Total 1000 / 2900 1200 / 2900 Balance 410 / 210 -150 / 210 Weight last 48 hrs Weight 210 lb Physical Exam Narrative: EXAM NARRATIVE: The patient is afebrile. Bowel sounds are present but hypoactive. The incisions look good. Data : 09/07/20 04:52 09/07/20 04:52 Micro: Microbiology 09/05/20 Unknown Gram Stain - Final Peritoneal Fluid Gram Stain Final 09/06/20-0737 Result MANY POLYMORPHONUCLEAR NEUTROPHILS MODERATE GRAM POSITIVE COCCI IN PAIRS & CHAINS FEW GRAM POSITIVE RODS A&P Assessment and plan (1) Perforated appendicitis: Status post laparoscopic appendectomy for perforated appendicitis on 09/05/2020. The patient's white blood cell count is improved. Gram stain of the peritoneal fluid revealed some gram-positive cocci consistent with Streptococcus, and some gram-positive rods. Still awaiting culture results/identification and sensitivities. Continue Zosyn. Status: Acute Attestations Medical Necessity Statement*: Patient continues inpatient care for continued intravenous antibiotics following perforated appendicitis. Coding Level of Care Code Acute [facility] Diagnoses Perforated appendicitis K35.32
[2020-09-07] MEDS: lisinopril 20 mg Tablet PO (09:21)
[2020-09-07] MEDS: aspirin 81 mg EC Tablet PO (09:21)
[2020-09-07] MEDS: pregabalin 150 mg Capsule 300 MG PO ×2 (09:21→20:02)
[2020-09-07] MEDS: D5-NS 0.45% + KCL 20 mEq 20 MEQ/1,000 ML BAG 100 MEQ IV ×2 (09:22→23:26)
[2020-09-07] MEDS: heparin 5,000 unit/mL INJ 1 mL 5000 UNIT SUBCUT ×2 (09:24→20:02)
[2020-09-07] MEDS: famotidine 20 mg/2 mL INJ IVP ×2 (09:24→20:02)
[2020-09-07] MEDS: nicotine 14 mg Patch 1 PATCH TRANSDERMA (09:25)
[2020-09-08] VITALS: BP 103/65; PULSE 97; RESP 18; TEMP 36.9; O2SAT 98
[2020-09-08] MEDS: piperacillin-tazobactam 3.375 GM in sodium chloride 0.9% (plus) 50 ML IV ×2 (01:25→08:48)
[2020-09-08] MEDS: HYDROcodone-acetaminophen 5-325 mg Tablet PO ×2 (02:11→07:55)
[2020-09-08 02:32] LABS: Basophils % 0.4 %; Eosinophils # 0.3 10^3/uL (0.0-0.8); Eosinophils % 2.5 %; Hematocrit 40.8 % (42.0-52.0); Hemoglobin 13.7 g/dL (11.7-16.6); Lymphocytes # 1.6 10^3/uL (0.8-4.8); Lymphocytes % 15.9 %; Mean Corpuscular HGB Conc 33.6 g/dL (30.0-36.0); Mean Corpuscular Hemoglobin 31.1 pg (28.0-34.0); Mean Corpuscular Volume 92.5 fL (80-94); Mean Platelet Volume 10.8 fL (7.4-10.4); Monocytes # 0.9 10^3/uL (0.2-0.9); Monocytes % 8.5 %; Neutrophils % 72.3 %; Nucleated Red Blood Cells % 0 %; Platelet Count 271 10^3/cmm (130-400); Red Blood Count 4.41 10^6/uL (4.1-5.3); White Blood Count 10.1 10^3/uL (4.0-10.0)
[2020-09-08 02:51] LABS: Anion Gap 11.1 (5-19); Blood Urea Nitrogen 4 mg/dL (6-20); Calcium 8.7 mg/dL (8.5-10.5); Carbon Dioxide 27 mmol/L (22-29); Chloride 104 mmol/L (98-107); Glomerular Filtration Rate 89.3 mL/min (90-130); Glucose 116 mg/dL (65-115); Osmolality Calculated 284 mOsm/kg (285-295); Potassium 4.1 mmol/L (3.5-5.1); Sodium 138 mmol/L (136-145)
[2020-09-08 04:00] VITALS: BP 99/64; PULSE 77; RESP 18; TEMP 36.7; O2SAT 98
[2020-09-08 07:37] VITALS: BP 106/66; PULSE 82; RESP 16; TEMP 36.4; O2SAT 96
[2020-09-08] MEDS: levalbuterol 0.63 mg/3 mL Neb INHALATION (07:49)
[2020-09-08] MEDS: pregabalin 150 mg Capsule 300 MG PO (07:51)
[2020-09-08] MEDS: aspirin 81 mg EC Tablet PO (07:51)
[2020-09-08] MEDS: famotidine 20 mg/2 mL INJ IVP (07:52)
[2020-09-08] MEDS: lisinopril 20 mg Tablet PO (07:52)
[2020-09-08] MEDS: heparin 5,000 unit/mL INJ 1 mL 5000 UNIT SUBCUT (07:52)
[2020-09-08] MEDS: nicotine 14 mg Patch 1 PATCH TRANSDERMA (07:52)
[2020-09-08] MEDS: D5-NS 0.45% + KCL 20 mEq 20 MEQ/1,000 ML BAG 100 MEQ IV (07:53)
[2020-09-08 07:54] VITALS: PULSE 83; RESP 18; O2SAT 95
[2020-09-08 07:55] VITALS: PULSE 87
--- NOTE | 2020-09-08 09:42 | PM.DCS ---
Discharge Providers Date of Admission: 09/06/20 08:15 Date of Discharge: September 08, 2020 Attending Provider at Admission: Stuart Cortés MD Attending Provider at Discharge: Stuart Cortés MD Diagnoses at Discharge Discharge Diagnosis (1) Perforated appendicitis: Status: Acute Reason for Visit Reason for Visit: ABDOMINAL PAIN Hospital Course Hospital Course This is a 50-year-old white male who presented to the hospital after experiencing the onset of abdominal pain at home. A CAT scan was consistent with acute appendicitis with probable perforation. He was taken to the operating room and was found to have a perforated appendicitis. Some peritoneal fluid was sent to the lab for culture which eventually revealed some gram-positive cocci in pairs and chains in addition to some gram-positive rods. He was kept on broad-spectrum antibiotics intravenously. 2 days later, identification of the bacteria was pending having to send both specimens out to a different facility as identification kits were apparently not available in house, and microbiology indicated it would probably be a couple of days before we had more answers. At the same time, the patient was very anxious to go home. He was tolerating a liquid diet and had been passing flatus, although that had slowed down in the 24 hours prior to discharge. He said his pain had continued to improve, however. He was afebrile and his white blood cell count had essentially normalized. He was instructed with respect to wound care, activity limitations, diet, etc. He was aware that we were cutting a corner and sending him home before identification and sensitivities of the bacteria were back, but arrangements were made to discharge him on ciprofloxacin and metronidazole. He was instructed to call me with any new fevers, worsening abdominal pain, etc. Arrangements will be made for the patient to follow-up with me in the office as an outpatient. Physical Exam Narrative: EXAM NARRATIVE: Bowel sounds are hypoactive. The surgical incisions look good. The patient has the expected amount of tenderness. Discharge Data Data Completed and Pending: Completed Studies During Hospitalization Category Date Time Status CT abdomen pelvis w con* [id number] Urge nt Cat Scan 09/05/20 16:08 Completed Pending at discharge Category Date Time Status ES surgery / GI i mages Routine Exams 09/05/20 18:01 Taken Body Fluid Cultur e & GS Routine Lab 09/05/20 Results Pathology: Surgic al [PTH] Routine Pth 09/05/20 19:16 Received Labs from last 24 hours 09/08/20 09/08/20 02:12 02:12 WBC 10.1 H RBC 4.41 Hgb 13.7 Hct 40.8 L MCV 92.5 MCH 31.1 MCHC 33.6 RDW 13.0 Plt Count 271 MPV 10.8 H Neut % (Auto) 72.3 Lymph % (Auto) 15.9 [place] % (Auto) 8.5 Eos % (Auto) 2.5 Baso % (Auto) 0.4 Neut # (Auto) 7.30 Lymph # (Auto) 1.6 [place] # (Auto) 0.9 Eos # (Auto) 0.3 Baso # (Auto) 0.0 Nucleated RBC % (a uto) 0 Nucleated RBCs # 0.0 Sodium 138 Potassium 4.1 Chloride 104 Carbon Dioxide 27 Anion Gap 11.1 BUN 4 L Creatinine 0.9 GFR Calculation 89.3 L Glucose 116 H Calculated Osmolal ity 284 L Calcium 8.7 Vitals: Last Vital Signs Temp 97.5 F L 09/08/20 07:37 Pulse 87 09/08/20 07:55 Resp 18 09/08/20 07:54 BP 106/66 09/08/20 07:37 Pulse Ox 95 09/08/20 07:54 Discharge Plan Discharge Patient Disposition: Home Condition: Stable Prescriptions: New ciprofloxacin HCl 500 mg tablet 500 mg PO BID Qty: 14 RF: 0 metronidazole 500 mg tablet 500 mg PO TID Qty: 20 RF: 0 Continued cyclobenzaprine 10 mg tablet 10 mg PO TID PRN (Reason: MUSCLE CRAMPS) RF: 0 lisinopril 20 mg tablet 20 mg PO DAILY@0800 RF: 0 Aspir-81 81 mg Tablet,Delayed Release (Dr/Ec) 81 mg PO DAILY@0800 RF: 0 pregabalin 300 mg capsule 300 mg PO BID@0800,2000 RF: 0 saw palmetto 1 tab PO DAILY@0800 RF: 0 Discharge Orders: Discharge Order (Routine); Ordered 09/08/20 Ordered By: Stuart Cortés Referrals: Stuart Cortés MD [Physician] - 7-10 days (Nursing: Please have the patient / family call Dr. Cortés's office on Wednesday ([phone]) and make an appointment for the patient to be seen in 7-10 days.) Discharge Diet: Advance as tolerated Discharge Activity: Limit activity as instructed Activity Restrictions/Additional Instructions: 1. Discharge to home today. 2. Appointment to see Dr. Cortés as above. 3. Leave Steri-Strip(s) on, may shower. 4. Ciprofloxacin and metronidazole prescriptions as above. No lifting over 20 pounds, no repetitive bending or twisting, no strenuous pushing / pulling or other heavy activity. Ambulate regularly. May go up and down steps if needed. 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
[2020-09-08 11:03] VITALS: PULSE 87
--- NOTE | 2020-09-09 19:57 | PC.RESP ---
Smoking Cessation information sent to patient.
== END 2020-09-08 11:03 | disposition home or self-care (01) | DRG 339 ==
LOC: ER 17:38 → OR 17:40 → MEDSURG 18:20
PROVIDERS: Admitting Provider Surgery; Emergency Provider Physician Assistant; Visit Provider Surgery
PROC: 0DTJ4ZZ Resection of Appendix, Percutaneous Endoscopic Approach (ICD-10-PCS; CPT 44970; principal; 2020-09-05 18:30)
DX: K35.32 Acute appendicitis with perforation, localized peritonitis, and gangrene, without abscess (principal); K56.7 Ileus, unspecified; K80.20 Calculus of gallbladder without cholecystitis without obstruction; G89.29 Other chronic pain; M54.9 Dorsalgia, unspecified; I10 Essential (primary) hypertension; F17.210 Nicotine dependence, cigarettes, uncomplicated; K42.9 Umbilical hernia without obstruction or gangrene; Z79.82 Long term (current) use of aspirin
CPT/HCPCS: 12345; 36415; 74177; 80048; 80053; 81003; 83605; 83690; 85025; 87070; 87075; 87077; 87205; 88304; 94640; 96365; 96372; 99285; G0378; J0131; J0330; J1100; J1644; J2270; J2405; J2543; J2704; J2710; J3010; J3490; J7614; Q9967

== ENCOUNTER 2024-06-22 09:46 | Emergency (ER) | payer MEDICARE, MEDICAID, SELFPAY ==
[2024-06-22 09:55] VITALS: BP 186/104; PULSE 105; TEMP 36.4; O2SAT 96
[2024-06-22 11:03] VITALS: BP 145/108; PULSE 88; RESP 18; O2SAT 98
--- NOTE | 2024-06-22 11:06 | XR_ITS ---
WS: [id number] Lumbar spine, AP and lateral views, 06/22/2024 Clinical Data: low back pain right sciatica Comparison: Lumbar spine, 10/16/2015 Findings: No compression fractures or subluxation is seen. There is degenerative disc narrowing at all levels f rom T11-T12 to L5-S1. There are prominent anterior bridging spurs at multiple levels. The L4 spinous process has been resected. The transverse processes and SI joints are normal. XR/XR lumbar spine 2-3V* [id number] Impression: 1. Multilevel degenerative disc narrowing from T11-T12 to L5-S1. 2. Bridging anterior spurs at multiple levels from the lower thoracic vertebral bodies to L5.
--- NOTE | 2024-06-22 11:24 | ED_ITS ---
HPI - Back Pain/Injury General: Chief Complaint: Back Pain/Injury Stated Complaint: Back pain Time Seen by Provider: 06/22/24 10:56 History of Present Illness: Presents to the ER with complaints of low back pain that radiates down his right leg to his right foot. Said this been going on for about 3 days now. No known trigger. Patient does have a history of spinal stenosis with operation on the left side for similar symptoms. This is done by Dr. Brown in [place]. Patient stated he is been off all medicine for this but he found some old Lyrica and 1 pain pill and start taking them 2 days ago but has not helped. Related Data Previous Rx's Medication Instructions Recorded hydrocodone 5 mg-acetaminophen 325 1 tab PO Q6H PRN pain #14 tabs 06/22/24 mg tablet prednisone 50 mg tablet 50 mg PO DAILY #5 tabs 06/22/24 pregabalin 150 mg capsule (Lyrica) 150 mg PO Q12H #30 caps 06/22/24 Allergies Allergy/AdvReac Type Severity Reaction Status Date / Time codeine Allergy ADR-Nausea Verified 06/22/24 10:00 Review of Systems General: Reports: 10 or more systems reviewed and unremarkable except in HPI and below PFSH ED PFSH: Medical History Cholelithiasis Chronic back pain Hypertension Surgical History Umbilical hernia Repaired at the time of appendectomy Previous back surgery Lumbar laminectomy x 1 Social History Smoking and tobacco/nicotine status: current every day tobacco/nicotine user cigarettes Packs smoked per day: 1 Years cigarettes smoked: 35 Alcohol intake: current Alcohol type: beer Physical Exam Const: COMMON NORMALS: no acute distress, average body habitus, patient oriented x3, no limitations, healthy appearing, alert and well nourished HENMT: COMMON NORMALS: normocephalic, atraumatic, hearing grossly normal bilaterally, external ears normal, Normal external nose present and moist oral mucous membranes HEAD & SCALP: normocephalic and atraumatic NOSE: Normal external nose present EXTERNAL EAR: Yes external ears normal Neck/C-Spine: COMMON NORMALS: no JVD Chest: COMMONS NORMALS: normal inspection of the chest and normal palpation of entire chest wall Resp: COMMON NORMALS: normal respiratory effort, No retractions, No use of accessory muscles and clear to auscultation bilaterally AUSCULTATION: clear to auscultation bilaterally Cardio: COMMON NORMALS: no JVD, regular rate, regular rhythm, S1 normal heart sound present, S2 normal heart sound present, No gallops present (Cardio), No clicks present (Cardio), No murmurs present (Cardio) and No rub (Cardio) RATE: regular rate RHYTHM: regular rhythm HEART SOUNDS: S1 normal heart sound present and S2 normal heart sound present GI: COMMON NORMALS: Normal to inspection, nondistended, normoactive bowel sounds present, Soft to palpation, non-tender, No hepatosplenomegaly present and no masses PALPATION: Yes Soft to palpation and Yes No hepatosplenomegaly present Neuro: COMMON NORMALS: patient oriented x3 SENSORIUM/ORIENTATION: Yes alert Course Vital Signs: Vital signs: Vital Signs Temperature 97.6 F 06/22/24 09:55 Pulse Rate 88 06/22/24 11:03 Respiratory Rate 18 06/22/24 11:03 Blood Pressure 145/108 06/22/24 11:03 Pulse Oximetry 98 06/22/24 11:03 Oxygen Delivery Me thod Room Air 06/22/24 11:03 MDM - Back Pain/Injury Medical Decision Making Patient was given 60 mg Toradol 10 mg Decadron, and x-ray of the lumbar spine showed multilevel degenerative disks and bridging anterior osteophytes at multiple levels. Patient will be placed back on Lyrica, short course of prednisone, and hydrocodone, Medical Records I reviewed the patient's medical records. Labs I reviewed the patient's lab results. Radiology Impressions Lumbar Spine X-Ray 06/22/24 11:06 Impression: 1. Multilevel degenerative disc narrowing from T11-T12 to L5-S1. 2. Bridging anterior spurs at multiple levels from the lower thoracic vertebral bodies to L5. All radiology interpretation(s) finalized by discharge Discharge Plan Discharge Patient Disposition: Home Clinical Impression: Lumbar radiculopathy Osteoarthritis of spine Qualifiers: Spinal region: lumbosacral Spinal osteoarthritis complication: with radiculopathy Qualified Code(s): M47.27 - Other spondylosis with radiculopathy, lumbosacral region Condition: Stable Prescriptions: New hydrocodone-acetaminophen 5-325 mg tablet 1 tab PO Q6H PRN (Reason: pain) Qty: 14 0RF prednisone 50 mg tablet 50 mg PO DAILY Qty: 5 0RF pregabalin [Lyrica] 150 mg capsule 150 mg PO Q12H Qty: 30 0RF Discharge Orders: Discharge ED (Routine); Ordered 06/22/24 Ordered By: Abdi Shah Patient Instructions: Opioid Safety, Pain Management, Lumbar Radiculopathy (ED) Activity Restrictions/Additional Instructions: Your back x-ray shows extensive arthritis but no acute abnormality. You have been prescribed hydrocodone, Lyrica, prednisone, please pick them up at the pharmacy and take them as directed. Please follow-up with your family practice physician for further evaluation treatment as needed. Coding Level of Care Code ED Fuse Spooler for [facility]
[2024-06-22] MEDS: dexamethasone 10 mg/mL INJ IM (11:33)
[2024-06-22] MEDS: ketorolac 60 mg/2 mL INJ IM (11:34)
[2024-06-22 12:37] VITALS: BP 160/105; PULSE 79; O2SAT 93
== END 2024-06-22 12:39 | disposition home or self-care (01) ==
PROVIDERS: Emergency Provider Emergency Medicine
DX: M47.27 Other spondylosis with radiculopathy, lumbosacral region (principal); F17.210 Nicotine dependence, cigarettes, uncomplicated; I10 Essential (primary) hypertension
CPT/HCPCS: 72100; 96372; 99284; J1100; J1885